=== PATIENT | female | born 1950 | race Hispanic/Latino ===

== ENCOUNTER 2017-10-16 10:02 | Outpatient (CLI) | payer MEDICARE, OTHER | END 2017-10-16 10:03 | disposition home or self-care (01) | LOC: BICMAMMO 10:02 | PROVIDERS: ATTEND Obstetrics & Gynecology | DX: Z12.31 Encounter for screening mammogram for malignant neoplasm of breast (principal); Z80.3 Family history of malignant neoplasm of breast | CPT/HCPCS: 77063; 77067 ==

== ENCOUNTER 2019-06-15 14:41 | Outpatient (CLI) | payer MEDICARE, OTHER ==
--- NOTE | 2019-06-15 15:09 | RAD ---
EXAM: 2 views of the right hip HISTORY: Right hip pain from right hamstring strain COMPARISON: None FINDINGS: 2 views of the right hip shows no evidence of acute fracture or dislocation. No degenerativ e changes are seen. No soft tissue swelling is present. IMPRESSION: No evidence of acute osseous abnormality.
--- NOTE | 2019-06-15 15:13 | RAD ---
Exam: Single view of the pelvis HISTORY: Pelvic and hip pain COMPARISON: None FINDINGS: A single view the pelvis shows no evidence of acute fracture or dislocation. No degenerativ e changes seen in either hip. IMPRESSION: No evidence of acute osseous abnormality.
== END 2019-06-15 14:42 | disposition home or self-care (01) ==
LOC: BICRAD 14:41
PROVIDERS: ATTEND Family Medicine
DX: S76.311D Strain of muscle, fascia and tendon of the posterior muscle group at thigh level, right thigh, subsequent encounter (principal)
CPT/HCPCS: 72170

== ENCOUNTER 2019-12-11 13:12 | Outpatient (CLI) | payer MEDICARE, OTHER ==
--- NOTE | 2019-12-11 14:07 | BD ---
EXAM: DEXA bone density examination HISTORY: 69-year-old postmenopausal female for screening COMPARISON: None FINDINGS: L1--bone mineral density 0.909 g/sq cm; T score -0.7 L2--bone mineral density 0.930 g/sq cm; T score -0.9 L3--bone mineral density 0.868 g/sq cm; T score -2.0 L4--bone mineral density 1.011 g/sq cm; T score -0.5 Total L1-L4--bone mineral density 0.932 g/sq cm; T score -1.0 Left femoral neck--bone mineral density0.604; T score -2.2 Total proximal left femur--bone mineral density 0.870; T score -0.6 IMPRESSION: Osteopenia. This patient has a 10 year WHO fracture risk of a major osteoporotic fracture of 11% and of a hip fracture of 2.0%.
--- NOTE | 2019-12-11 14:14 | MMO ---
Right Breast MAMMO Unilat Diag DDI RT+REJI. CLINICAL HISTORY: Patient is 69 years old and is seen for additional evaluation requested from prior study. The patient has the following family history of breast cancer: mother, at age 70 and maternal grandmother. The patient has no personal history of cancer. The patient has a history of right needle biopsy in 2012 - benign and left Excisional Biopsy in early - benign. VIEWS: The views performed were: right craniocaudal spot compression with tomosynthesis; right mediolateral oblique spot compression with tomosynthesis; and right mediolateral with tomosynthesis. FILMS COMPARED: The present examination has been compared to prior imaging studies performed at [facility] on 10/16/2018 and 12/02/2019, and at [facility] on 10/16/2017 and 12/11/2019. This study has been interpreted with the assistance of computer-aided detection. MAMMOGRAM FINDINGS: There are scattered fibroglandular densities. Nodular densities correspond to cysts as confirmed on ultrasound. Recommend routine follow up. There are no suspicious masses, suspicious calcifications, or new areas of architectural distortion. IMPRESSION: THERE IS NO MAMMOGRAPHIC EVIDENCE OF MALIGNANCY. A ROUTINE FOLLOW-UP MAMMOGRAM IN 1 YEAR IS RECOMMENDED. THE RESULTS OF THIS EXAM WERE SENT TO THE PATIENT. ACR BI-RADS Category 2 - Benign finding MAMMOGRAPHY NOTE: 1. A negative mammogram report should not delay a biopsy if a dominant of clinically suspicious mass is present. 2. Approximately 10% to 15% of breast cancers are not detected by mammography. 3. Adenosis and dense breasts may obscure an underlying neoplasm. Reported by: RONAK MEIER MD Electonically Signed: [id number]
--- NOTE | 2019-12-11 16:25 | ULT ---
ULTRASOUND RIGHT BREAST: 12/11/19 INDICATIONS: Ultrasound of the outer right breast performed to assess nodular density seen at mammography. FINDINGS: At 9 o'clock, there is a simple cyst measuring 1.0 cm. This probably corresponds to the nodular dens ity seen in the outer right breast on mammography. There are other smaller cysts identified. At 11 o' clock, there is a 1.7 cm simple cyst. There are no solid masses seen. No suspicious sonographic abnor mality. IMPRESSION: Multiple cysts are seen in the right breast corresponding to the mammogram nodules. No suspicious son ographic abnormality. BIRADS 2: Benign Finding(s) Routine annual screening mammography (for women over age 40).
== END 2019-12-11 13:13 | disposition home or self-care (01) ==
LOC: BICMAMMO 13:12
PROVIDERS: ATTEND Obstetrics & Gynecology
DX: Z13.820 Encounter for screening for osteoporosis (principal); R92.8 Other abnormal and inconclusive findings on diagnostic imaging of breast; M85.89 Other specified disorders of bone density and structure, multiple sites; N60.01 Solitary cyst of right breast; N63.10 Unspecified lump in the right breast, unspecified quadrant
CPT/HCPCS: 76642; 77065; 77080; G0279

== ENCOUNTER 2020-04-11 14:37 | Outpatient (CLI) | payer MEDICARE, OTHER ==
--- NOTE | 2020-04-11 15:43 | RAD ---
Lumbar spine 2 views weightbearing. FINDINGS: There are 5 lumbar type vertebrae. Pedicles are intact. Vertebral body heights and alignmen t are maintained. Mild disc space narrowing at the L4-5 level. Osteophytosis of the lower facets. No acute fracture or dislocation are apparent. Metallic clips overlie the gallbladder fossa. IMPRESSION : Degenerative changes lower lumbar spine. No evidence of compression fracture.
--- NOTE | 2020-04-11 15:47 | MRI ---
MRI Lumbar Spine Noncontrast: HISTORY: Lumbar radiculopathy. Right buttock and right leg pain. COMPARISON: None FINDINGS: The visualized retroperitoneal structures demonstrate a normal appearance. Conus medullaris is normal in morphology and terminates at the L1 level. There is a circumscribed 10 mm increased T1 and T2-weighted signal intensity lesion in the L2 vertebr al body demonstrating characteristics compatible with a hemangioma. Schmorl's node is seen in the inferior endplate of L4 vertebral body with endplate degenerative changes along the L4 vertebral body . There is suggestion of ligamentous thickening posteriorly at the T10-11 level which encroaches on the posterior aspect of the spinal cord. Based on sagittal imaging, the neural foramina are patent, and there is no disc bulge or disc herniation. L1-2: Mild disc osteophyte complex and facet degenerative changes. Central spinal canal and neural fo ramina are patent L2-3: Mild disc osteophyte complex and mild facet degenerative changes. Central spinal canal and neur al foramina are patent L3-4: Loss of intervertebral disc height. Broad-based disc osteophyte complex is present. Facet hyper trophic changes and ligamentous thickening are present greater on the right. Findings result in moderate central canal narrowing. Mild bilateral neural foraminal narrowing is present. L4-5: Mild loss of intervertebral disc height. Broad-based disc osteophyte complex is present. Facet hypertrophic changes and ligamentous thickening is present. There is mild to moderate generalized narrowing of the central spinal canal with mild bilateral neural foraminal narrowing greater on the r ight. Right lateral disc bulge at this level encroaches on the exited right L4 nerve root. L5-S1: There is no disc bulge or disc herniation. Central spinal canal and neural foramina are patent . Facet hypertrophic changes are present at this level. IMPRESSION: Degenerative changes in the lumbar spine greatest at the L3-4 and L4-5 levels.
== END 2020-04-11 14:38 | disposition home or self-care (01) ==
LOC: BICMRI 14:37
PROVIDERS: ATTEND Family Medicine
DX: M47.26 Other spondylosis with radiculopathy, lumbar region (principal)
CPT/HCPCS: 36415; 72100; 72148; 80053; 80061; 83036; 84443; 85025

== ENCOUNTER 2020-07-01 11:39 | Outpatient (CLI) | payer MEDICARE, OTHER ==
--- NOTE | 2020-07-01 12:57 | RAD ---
Exam:3 views left wrist HISTORY: Pain. Patient fell. COMPARISON: None FINDINGS: Nondisplaced distal radius fracture with intra-articular extension. Associated soft tissue swelling No evidence of a carpal bone fracture Moderate to severe degenerative change involving the first carpometacarpal articulation. IMPRESSION: Nondisplaced distal radius fracture with intra-articular extension.
--- NOTE | 2020-07-01 13:18 | RAD ---
Left hand 3 views: 07/01/2020 HISTORY: Recent fall, trauma, pain FINDINGS: There is severe degenerative change involving the first carpometacarpal joint. There is a suggestion of a subtle obliquely oriented fracture of the distal left radius medially exte nding into the region of the radiocarpal joint. No evidence for dislocation. No additional fracture is seen. There are significant scattered degenera tive changes involving the interphalangeal joints of the second through fifth fingers as well as the first interphalangeal joint, most prominently involving the distal interphalangeal joint of the s econd, third, and fifth digits. IMPRESSION: Findings suggesting a nondisplaced intra-articular fracture of the distal left radius as detailed above.
== END 2020-07-01 11:40 | disposition home or self-care (01) ==
LOC: BICRAD 11:39
PROVIDERS: ATTEND Physician Assistant
DX: M79.642 Pain in left hand (principal); M25.532 Pain in left wrist; S52.572A Other intraarticular fracture of lower end of left radius, initial encounter for closed fracture

== ENCOUNTER 2020-12-16 12:53 | Outpatient (CLI) | payer MEDICARE, OTHER | END 2020-12-16 12:54 | disposition home or self-care (01) | LOC: BICMAMMO 12:53 | PROVIDERS: ATTEND Family Medicine | DX: Z12.31 Encounter for screening mammogram for malignant neoplasm of breast (principal); Z80.3 Family history of malignant neoplasm of breast; Z91.89 Other specified personal risk factors, not elsewhere classified | CPT/HCPCS: 77063; 77067 ==

== ENCOUNTER 2021-12-19 12:47 | Outpatient (CLI) | payer MEDICARE, OTHER | END 2021-12-19 12:48 | disposition home or self-care (01) | LOC: BICMAMMO 12:47 | PROVIDERS: ATTEND Family Medicine | DX: Z12.31 Encounter for screening mammogram for malignant neoplasm of breast (principal); Z80.3 Family history of malignant neoplasm of breast; Z91.89 Other specified personal risk factors, not elsewhere classified | CPT/HCPCS: 77063; 77067 ==

== ENCOUNTER 2022-05-15 14:13 | Outpatient (CLI) | payer MEDICARE, OTHER | END 2022-05-15 14:14 | disposition home or self-care (01) | LOC: BICMAMMO 14:13 | PROVIDERS: ATTEND Family Medicine | DX: Z13.820 Encounter for screening for osteoporosis (principal); M85.89 Other specified disorders of bone density and structure, multiple sites; Z79.83 Long term (current) use of bisphosphonates; Z91.89 Other specified personal risk factors, not elsewhere classified | CPT/HCPCS: 77080 ==

== ENCOUNTER 2023-01-11 13:27 | Outpatient (CLI) | payer MEDICARE, OTHER | END 2023-01-11 13:28 | disposition home or self-care (01) | LOC: BICMAMMO 13:27 | PROVIDERS: ATTEND Family Medicine | DX: Z12.31 Encounter for screening mammogram for malignant neoplasm of breast (principal); Z80.3 Family history of malignant neoplasm of breast; Z91.89 Other specified personal risk factors, not elsewhere classified | CPT/HCPCS: 77063; 77067 ==

== ENCOUNTER 2024-01-13 12:41 | Outpatient (CLI) | payer MEDICARE, OTHER | END 2024-01-13 12:42 | disposition home or self-care (01) | LOC: BICMAMMO 12:41 | PROVIDERS: ATTEND Family Medicine | DX: Z12.31 Encounter for screening mammogram for malignant neoplasm of breast (principal); Z80.3 Family history of malignant neoplasm of breast; Z91.89 Other specified personal risk factors, not elsewhere classified | CPT/HCPCS: 77063; 77067 ==